=== PATIENT | female | born 1970 | race Hispanic/Latino ===

== ENCOUNTER 2019-05-07 00:48 | Emergency (ER) | payer BC ==
[2019-05-07] MEDS ORDERED: ASPIRIN 325 MG TABLET ONE (01:21)
[2019-05-07 01:24] LABS: BASOPHILS % (AUTO) 1.4 % (0.0-5.0); EOSINOPHILS % (AUTO) 3.4 % (0.0-8.0); HEMATOCRIT 40.2 % (36-48); LYMPHOCYTES % (AUTO) 45.3 % (21.0-51.0); MEAN CORPUSCULAR HEMOGLOBIN 33.9 pg (27.0-33.0); MEAN CORPUSCULAR HGB CONC 34.9 g/dL (32.0-36.0); MEAN CORPUSCULAR VOLUME 96.9 fL (79-99); MONOCYTES % (AUTO) 5.2 % (3.0-13.0); NEUTROPHILS % (AUTO) 44.7 % (40.0-77.0); NUCLEATED RED BLOOD CELLS 0.2 % (0.0-0.19); PLATELET COUNT (AUTO) 356 K/uL (130-400); RED BLOOD CELL COUNT(AUTO) 4.15 MIL/uL (4.00-5.50); RED CELL DISTRIBUTION WIDTH 12.2 % (11.0-15.5); WHITE BLOOD COUNT (AUTO) 7.4 K/uL (4.8-10.8)
[2019-05-07 01:29] LABS: POTASSIUM 3.5 mmol/L (3.5-5.1)
[2019-05-07 01:36] LABS: INR 0.89 (0.85-1.15); PARTIAL THROMBOPLASTIN TIME 27.6 SEC (26.3-35.5); PROTHROMBIN TIME 9.4 SEC (9.6-11.6)
[2019-05-07 02:15] LABS: ALBUMIN 3.6 g/dL (3.5-5.0); BILIRUBIN,TOTAL 0.3 mg/dL (0.2-1.0); CREATININE 0.7 mg/dL (0.5-1.5); TOTAL PROTEIN, SERUM 7.2 g/dL (6.0-8.3)
[2019-05-07] MEDS ORDERED: KETOROLAC TROMETHAMINE 30MG/ML ONE (03:14)
[2019-05-07] MEDS ORDERED: ONDANSETRON HCL 4 MG/2 ML VIAL ONE (03:15)
== END 2019-05-07 04:13 | disposition home or self-care (01) ==
LOC: EDH 00:48
DX: R07.89 Other chest pain (principal); Z88.6 Allergy status to analgesic agent; Z90.710 Acquired absence of both cervix and uterus; Z90.49 Acquired absence of other specified parts of digestive tract
CPT/HCPCS: 36415; 71045; 80053; 82550; 83874; 83880; 84484; 85025; 85378; 85610; 85730; 93005; 96374; 96375; 99285; J1885; J2405